=== PATIENT | male | born 1950 | race Caucasian/White ===

== ENCOUNTER 2021-09-29 03:22 | Inpatient (IN) | payer MEDICARE, OTHER ==
[~2021-09-29] VITALS: Ht 167.6 cm; Wt 77.7 kg
[2021-09-29 03:42] LABS: HEMOGLOBIN 13.3 gm/dl (14.0-17.5); RED BLOOD COUNT 4.86 M/UL (4.20-5.50)
[2021-09-29] MEDS ORDERED: XARELTO15 PACK PO (09:57)
[2021-09-29] MEDS ORDERED: CALCIUM CARBON600 MG PO (09:57)
[2021-09-29] MEDS ORDERED: METOPROLOL SUCC50 MG PO (09:58)
[2021-09-29] MEDS ORDERED: POTASSIUM CHLO10 ME1 PO (09:58)
[2021-09-29] MEDS ORDERED: ASPIRIN81 MG PO (09:58)
[2021-09-29] MEDS ORDERED: FLOMAX 0.4 MG0.4 MG PO (09:58)
[2021-09-29] MEDS ORDERED: BUMETANIDE1 MG PO (09:59)
[2021-09-29] MEDS ORDERED: ATORVASTATIN CA40 MG PO (09:59)
[2021-09-29] MEDS ORDERED: CLOPIDOGREL75 MG PO (09:59)
[2021-09-29] MEDS ORDERED: ALPRAZOLAM1 MG PO (10:00)
[2021-09-29] MEDS ORDERED: LISINOPRIL5 MG PO (10:00)
[2021-09-29] MEDS ORDERED: SPIRONOLACTONE25 MG PO (10:00)
[2021-09-29] MEDS ORDERED: IPRAT-ALBUT 0.5-3 ML INH (10:01)
[2021-09-29] MEDS ORDERED: PERCOCET 10-321 EACH PO (10:01)
[2021-09-30 03:56] LABS: HEMOGLOBIN 12.2 gm/dl (14.0-17.5); RED BLOOD COUNT 4.46 M/UL (4.20-5.50); WHITE BLOOD COUNT 8.7 K/UL (4.5-11.0)
[2021-09-30 04:21] LABS: BUN/CREATININE RATIO 27 (0-10)
[2021-10-01 20:39] LABS: HEMOGLOBIN 13.4 gm/dl (14.0-17.5); WHITE BLOOD COUNT 9.6 K/UL (4.5-11.0)
[2021-10-01 21:22] LABS: BUN/CREATININE RATIO 39 (0-10)
[2021-10-02 02:54] LABS: RED BLOOD COUNT 4.02 M/UL (4.20-5.50); WHITE BLOOD COUNT 12.1 K/UL (4.5-11.0)
[2021-10-02 03:31] LABS: BUN/CREATININE RATIO 45 (0-10)
[2021-10-02 10:40] LABS: HEMOGLOBIN 9.3 gm/dl (14.0-17.5); WHITE BLOOD COUNT 9.8 K/UL (4.5-11.0)
[2021-10-02 10:41] LABS: RED BLOOD COUNT 3.51 M/UL (4.20-5.50)
--- NOTE | 2021-10-02 17:39 | NUR ---
NOTIFIED DR. BRYANT OF CONT LOWER GI BLOOD IN STOOL, BRIGHT RED, SMELLS OF BLOOD WORSE THAN EARLIER TODAY, NEW CONSULT GIVEN, NO NEED FOR CARDIOLOGY CONSULT HE STATES, WITNESSED PER MORIAH FITZPATRICK. PATIENT HAS VERY LOW EF. SO NOT A CANDIDATE FOR SURGERY HE STATES.2ND UNIT OF BLOOD CONT TO INFUSE
[2021-10-02 21:26] LABS: HEMOGLOBIN 10.2 gm/dl (14.0-17.5)
[2021-10-03 07:48] LABS: RED BLOOD COUNT 4.61 M/UL (4.20-5.50)
[2021-10-03 07:49] LABS: HEMOGLOBIN 12.2 gm/dl (14.0-17.5)
[2021-10-03 08:50] LABS: BUN/CREATININE RATIO 33 (0-10)
[2021-10-03 12:06] LABS: HEMOGLOBIN 10.8 gm/dl (14.0-17.5)
[2021-10-03 19:19] LABS: HEMOGLOBIN 11.5 gm/dl (14.0-17.5)
[2021-10-04 05:38] LABS: HEMOGLOBIN 12.1 gm/dl (14.0-17.5); RED BLOOD COUNT 4.27 M/UL (4.20-5.50); WHITE BLOOD COUNT 10.7 K/UL (4.5-11.0)
[2021-10-04 06:12] LABS: BUN/CREATININE RATIO 30 (0-10)
[2021-10-04] MEDS ORDERED: ALPRAZOLAM0.5 MG PO (13:35)
[2021-10-04] MEDS ORDERED: PERCOCET 10-321 EACH PO (13:35)
--- NOTE | 2021-10-04 16:05 | NUR ---
called and gave report to [facility] nurse , waiting on ems
== END 2021-10-04 20:00 | DRG 291 ==
LOC: ER1 03:22 → CDU 08:20 → PROG CARE 08:20 → CCU 08:20 → PROG CARE 13:38 → CCU 10-02 22:08
PROVIDERS: Emergency Medicine; Physician Assistant Medical; ADMIT Internal Medicine Infectious Disease
PROC: 3E033XZ Introduction of Vasopressor into Peripheral Vein, Percutaneous Approach (ICD-10-PCS; principal; 2021-09-29)
PROC: 30233N1 Transfusion of Nonautologous Red Blood Cells into Peripheral Vein, Percutaneous Approach (ICD-10-PCS; 2021-10-02)
PROC: 30233L1 Transfusion of Nonautologous Fresh Plasma into Peripheral Vein, Percutaneous Approach (ICD-10-PCS; 2021-10-03)
DX: I50.23 Acute on chronic systolic (congestive) heart failure (principal); R57.0 Cardiogenic shock; K57.31 Diverticulosis of large intestine without perforation or abscess with bleeding; R57.1 Hypovolemic shock; K92.2 Gastrointestinal hemorrhage, unspecified; D62 Acute posthemorrhagic anemia; F11.20 Opioid dependence, uncomplicated; Z20.822 Contact with and (suspected) exposure to COVID-19; K80.20 Calculus of gallbladder without cholecystitis without obstruction; E78.5 Hyperlipidemia, unspecified; H70.10 Chronic mastoiditis, unspecified ear; E86.9 Volume depletion, unspecified; T45.515A Adverse effect of anticoagulants, initial encounter; E83.42 Hypomagnesemia; F03.90 Unspecified dementia, unspecified severity, without behavioral disturbance, psychotic disturbance, mood disturbance, and anxiety; I95.2 Hypotension due to drugs; I25.10 Atherosclerotic heart disease of native coronary artery without angina pectoris; I25.5 Ischemic cardiomyopathy; Z91.14 Patient's other noncompliance with medication regimen; Z95.5 Presence of coronary angioplasty implant and graft; Z86.73 Personal history of transient ischemic attack (TIA), and cerebral infarction without residual deficits; Z86.718 Personal history of other venous thrombosis and embolism; Z79.01 Long term (current) use of anticoagulants; Z51.5 Encounter for palliative care; Z79.82 Long term (current) use of aspirin; Z83.3 Family history of diabetes mellitus; I25.2 Old myocardial infarction
CPT/HCPCS: 36415; 70450; 71045; 80048; 80053; 80162; 81001; 82270; 82550; 82553; 82607; 82962; 83605; 83690; 83735; 83874; 83880; 84100; 84439; 84443; 84484; 85014; 85018; 85025; 85027; 85379; 85610; 85730; 86850; 86900; 86901; 86920; 86927; 87040; 87086; 93005; 93970; 94664; 94760; 96374; 96375; 97162; 99285; A6212; C9113; J1160; J1335; J2310; J2543; J3370; J3430; J3475; J7050; J7070; P9016; P9017; Q9967; U0002